=== PATIENT | female | born 1970 | race Caucasian/White ===

== ENCOUNTER → 2022-01-31 | Outpatient (CLI) | payer BC ==
--- NOTE | 2022-01-31 17:57 | CONS ---
CONSULTATION DATE OF SERVICE: 01/31/2022 This 51-year-old lady has been evaluated [facility] for possible obstructive sleep apnea-hypopnea syndrome. HISTORY OF PRESENT ILLNESS/SLEEP-WAKE EVALUATION: Patient's usual sleep schedule on weekdays is from 10:30 p.m. until 6:45 or 7:30 a.m. and on weekends from 11 p.m. until 8 a.m. Sometimes she has problems with falling asleep, although no TV in bedroom. She sleeps on the side position. She has snoring and awakenings from sleep 3 times with 2 episodes of nocturia. Positive history of grinding teeth, panic attacks, palpitations, sleeptalking, sweating. No history of hypnagogic hallucinations, sleep paralysis or cataplexy. In the morning the patient wakes up tired, worries about her sleep, has episodes of depression, anxiety and claustrophobia. [place] Sleepiness Scale is 4. Usually she does not take naps. PAST MEDICAL HISTORY: Positive for hypothyroidism, depression, left breast carcinoma, allergies, menopause. PAST SURGICAL HISTORY: Lumpectomy in the left breast with following radiation therapy, left shoulder surgery. MEDICATIONS: 1. Effexor 150 mg once a day. 2. Hydroxyzine 25 mg twice a day. 3. Irbesartan/hydrochlorothiazide 150/25 mg once a day. 4. Levothyroxine 25 mcg once a day. 5. Trazodone 50 mg once at night. 6. 750 mg once daily. 7. Omeprazole 1 capsule daily. FAMILY HISTORY: Hypertension, epilepsy, asthma, cancer, headaches, mental illness, sleep apnea. REVIEW OF SYSTEMS: Snoring, multiple awakenings from sleep. No fevers. No double vision. No recent chest pain. No shortness of breath. No abdominal pain. No bleeding episodes. No blood in the urine. No seizure episodes. PHYSICAL EXAMINATION: GENERAL: Pleasant lady without distress. VITAL SIGNS: BP 155/97, HR around 110, RR 16, height 5 feet 2-1/2 inches, weight 217.6, body mass index 39, temperature 98.2, oxygen saturation at room air 97%. HEENT: PERRLA, EOMI, evaluation of oropharynx showed tongue protrudes midline. Extremely low position of soft palate; Mallampati IV. NECK: Supple, no JVD. Thyroid is not palpable. Neck measures 15 inches in circumference. LUNGS: Clear to percussion and to auscultation. Good air exchange. No wheezing or rhonchi. HEART: S1, S2 regular. No murmurs, gallops, or rubs. ABDOMEN: Obese. EXTREMITIES: No clubbing or cyanosis. [employer] OPERATOR: Awake, alert, and oriented X3. Cranial nerves 2 to 7 intact. There is no fasciculation or atrophy. noted. No focal deficits observed. IMPRESSION: 1. Snoring, multiple awakenings from sleep with nocturia, extremely low position of soft palate, Mallampati IV; obstructive sleep apnea-hypopnea syndrome. 2. Obesity; body mass index 39. 3. History of depression. 4. Hypothyroidism. 5. History of left breast carcinoma, status post lumpectomy and radiation therapy. 6. Menopause. 7. Status post left shoulder . 8. Allergies. PLAN: 1. Home sleep apnea test for evaluation of patient's breathing during sleep. 2. Following plan after reviewing results of sleep study. 3. Losing weight. 4. Sleep hygiene with regular time in bed for at least 8 hours. 5. No driving if feeling sleepiness. Thank you very much for referring this patient for consultation. Sincerely, Eugenio Jarquin MD, PhD, FAASM Diplomat of [employer] Sleep Medicine [employer] of [employer] [facility] [place] MMODL / WHITN: [id number] /
== END ==
LOC: SLEEP 15:54
PROVIDERS: ATTEND Internal Medicine
DX: G47.33 Obstructive sleep apnea (adult) (pediatric) (principal); E66.9 Obesity, unspecified; Z68.39 Body mass index [BMI] 39.0-39.9, adult; F32.A Depression, unspecified; E03.9 Hypothyroidism, unspecified; Z85.3 Personal history of malignant neoplasm of breast; Z98.890 Other specified postprocedural states; Z78.0 Asymptomatic menopausal state; T78.40XA Allergy, unspecified, initial encounter; Z79.890 Hormone replacement therapy
CPT/HCPCS: 99202